=== PATIENT | female | born 1955 | race African-American/Black ===

== ENCOUNTER 2017-03-01 08:24 | Emergency (ER) | payer SELFPAY ==
[2017-03-01] MEDS ORDERED: Orphenadrine Citrate 60 MG/2 ML VIAL ONE (10:58)
[2017-03-01] MEDS ORDERED: HYDROcodone/Acetaminophen 10/325 mg Tablet ONE (10:58)
[2017-03-01] MEDS ORDERED: Ibuprofen 800 MG TAB ONE (10:59)
== END 2017-03-01 11:21 | disposition home or self-care (01) ==
LOC: BURERS 08:24
DX: S39.012A Strain of muscle, fascia and tendon of lower back, initial encounter (principal); E11.9 Type 2 diabetes mellitus without complications; I10 Essential (primary) hypertension; F32.9 Major depressive disorder, single episode, unspecified; F17.210 Nicotine dependence, cigarettes, uncomplicated; Z79.84 Long term (current) use of oral hypoglycemic drugs; Z79.899 Other long term (current) drug therapy; W18.30XA Fall on same level, unspecified, initial encounter
CPT/HCPCS: 96372; J2360

== ENCOUNTER 2017-06-01 07:21 | Emergency (ER) | payer SELFPAY | END 2017-06-01 07:34 | disposition home or self-care (01) | LOC: BURERS 07:21 | DX: B34.9 Viral infection, unspecified (principal); E11.9 Type 2 diabetes mellitus without complications; I10 Essential (primary) hypertension; F17.210 Nicotine dependence, cigarettes, uncomplicated; F32.9 Major depressive disorder, single episode, unspecified | CPT/HCPCS: 99283 ==

== ENCOUNTER 2018-10-23 17:03 | Emergency (ER) | payer OTHER, SELFPAY | END 2018-10-23 17:53 | disposition home or self-care (01) | LOC: BURERS 17:03 | DX: T20.06XA Burn of unspecified degree of forehead and cheek, initial encounter (principal); T26.02XA Burn of left eyelid and periocular area, initial encounter; F17.210 Nicotine dependence, cigarettes, uncomplicated; F32.9 Major depressive disorder, single episode, unspecified; X12.XXXA Contact with other hot fluids, initial encounter | CPT/HCPCS: 99283 ==

== ENCOUNTER 2019-02-26 12:47 | Emergency (ER) | payer SELFPAY ==
[2019-02-26] MEDS ORDERED: Ibuprofen 800 MG TAB ONE (13:31)
[2019-02-26] MEDS ORDERED: Cyclobenzaprine 10 MG TAB ONE (13:31)
== END 2019-02-26 13:37 | disposition home or self-care (01) ==
LOC: BURERS 12:47
DX: S56.912A Strain of unspecified muscles, fascia and tendons at forearm level, left arm, initial encounter (principal); E13.9 Other specified diabetes mellitus without complications; I10 Essential (primary) hypertension; F32.9 Major depressive disorder, single episode, unspecified; F17.210 Nicotine dependence, cigarettes, uncomplicated; Z79.899 Other long term (current) drug therapy; Z79.82 Long term (current) use of aspirin; X58.XXXA Exposure to other specified factors, initial encounter
CPT/HCPCS: 99283

== ENCOUNTER 2022-12-25 17:14 | Emergency (ER) | payer MEDICAID, SELFPAY ==
[2022-12-25] MEDS ORDERED: HYDROcodone/Acetaminophen 5/325 mg Tablet ONE (18:01)
== END 2022-12-25 19:19 | disposition home or self-care (01) ==
LOC: BURERS 17:14
DX: S20.221A Contusion of right back wall of thorax, initial encounter (principal); E11.9 Type 2 diabetes mellitus without complications; I10 Essential (primary) hypertension; F17.210 Nicotine dependence, cigarettes, uncomplicated; W01.10XA Fall on same level from slipping, tripping and stumbling with subsequent striking against unspecified object, initial encounter
CPT/HCPCS: 71250

== ENCOUNTER 2025-02-15 16:44 | Outpatient (CLI) | payer MEDICARE, MEDICAID | END 2025-02-15 16:45 | disposition home or self-care (01) | LOC: BURRAD 16:44 | PROVIDERS: ATTEND Registered Nurse | DX: M75.52 Bursitis of left shoulder (principal) ==